=== PATIENT | male | born 1995 | race Hispanic/Latino ===

== ENCOUNTER 2021-04-12 20:10 | Emergency (ER) | payer BC ==
[2021-04-12] MEDS ORDERED: Sodium Chloride 0.9% 1,000 ML ONE (20:29)
[2021-04-12] MEDS ORDERED: Ondansetron PF 4 MG/2 ML Vial ONE (20:29)
[2021-04-12 21:08] LABS: ALT (SGPT) 257 U/L (8-55); AST (SGOT) 149 U/L (5-34); Albumin 4.1 g/dL (3.5-5.0); Alkaline Phosphatase 73 U/L (40-110); Anion Gap 15 mmol/L (10-20); BUN (Urea Nitrogen) 11 mg/dL (8.9-20.6); Bilirubin, Total 0.8 mg/dL (0.2-1.2); Calc. Creatinine Clearance 0 mL/min (70-130); Calcium 8.9 mg/dL (7.8-10.44); Carbon Dioxide 20 mmol/L (22-29); Chloride 106 mmol/L (98-107); Globulin 3.8 g/dL (2.4-3.5); Glucose 96 mg/dL (70-105); Protein, Total 7.9 g/dL (6.0-8.3); Sodium 137 mmol/L (136-145)
[2021-04-12 21:17] LABS: #Basophils 0.1 thou/uL (0.0-0.2); #Lymphocytes 4.9 thou/uL (1.20-3.40); #Monocytes 0.4 thou/uL (0.11-0.59); %Basophils 0.8 % (0.0-1.0); %Eosinophils 0.1 % (0.0-10.0); %Lymphocytes 58.7 % (21.0-51.0); %Monocytes 4.5 % (0.0-10.0); %Neutrophils 35.9 % (42.0-75.0); Hemoglobin 16.5 g/dL (14.0-18.0); Mean Corpuscular HGB CONC 32.9 g/dL (32.0-36.0); Mean Corpuscular Hemoglobin 30.7 pg (27.0-31.0); Mean Corpuscular Volume 93.5 fL (78.0-98.0); Mean Platelet Volume 7.6 fL (7.4-10.4); Platelet Count 177 thou/uL (130-400); Red Blood Cell (RBC) Count 5.35 mill/uL (4.70-6.10); White Blood Cell (WBC) Count 8.4 thou/uL (4.8-10.8)
[2021-04-12] MEDS ORDERED: Ibuprofen 800 MG TAB ONE (21:30)
== END 2021-04-12 22:15 | disposition home or self-care (01) ==
LOC: NAV ERS 20:10
DX: U07.1 COVID-19 (principal); R10.31 Right lower quadrant pain; E86.0 Dehydration; F17.200 Nicotine dependence, unspecified, uncomplicated
CPT/HCPCS: 71045; 80053; 83605; 85025; 96374; J2405; J7050

== ENCOUNTER 2021-11-03 07:17 | Emergency (ER) | payer BC ==
[2021-11-03] MEDS ORDERED: Silver Nitrate Application 1 EACH ONE (07:50)
== END 2021-11-03 08:10 | disposition home or self-care (01) ==
LOC: NAV ERS 07:17
DX: B07.8 Other viral warts (principal); R58 Hemorrhage, not elsewhere classified; F17.210 Nicotine dependence, cigarettes, uncomplicated; Z79.899 Other long term (current) drug therapy
CPT/HCPCS: 12001